=== PATIENT | male | born 1960 | race Caucasian/White ===

== ENCOUNTER 2017-01-10 07:35 | Emergency (ER) ==
--- NOTE | 2017-01-10 08:13 | PROVIDER DOCUMENTATION ---
HPI-Neurological Disorder <Noe Jennings - Last Filed: 01/10/17 11:24> - General Source: family Unable to obtain history due to:: urgency - History of Present Illness-Neuro Severity: reports: mild Onset/Duration: reports: 1 hour ago Timing: reports: resolved prior to arrival Context: reports: found unresponsive by family, low blood sugar Approximate time patient was last seen normal?: 06:00 Character of Altered Mental Status: reports: disoriented, confused, trouble concentrating, decreased responsiveness Any recent trauma/injury?: reports: none Character of Deficits: reports: altered sensation New weakness or altered sensation location:: reports: none Cognitive Baseline: alert, oriented x3 Gait Baseline: walks without assistance Associated Symptoms: reports: headache, confusion Similar Symptoms Previously?: Yes Recently seen or treated by another doctor?: No - Seizure First time to have a seizure?: No Witnessed seizure?: No Status Epilepticus: No Character of Seizure: denies: lost consciousness Post-ictal Symptoms: reports: none Seizure related injury: none <Cristian Cole I - Last Filed: 01/10/17 11:28> - General Chief Complaint: Low Blood Sugar Stated Complaint: unresponsive / low blood sugar Time Seen by Provider: 01/10/17 07:52 Allergies/Adverse Reactions: Patient Allergies Allergy/AdvReac Type Severity Reaction Status Date / Time No Known Allergies Allergy Verified 01/10/17 07:56 Home Medications: Home Medication List Medication Instructions Recorded Confirmed Last Taken Type Aspirin [Aspirin EC] 325 mg PO DAILY 11/22/12 01/10/17 01/10/17 07:00 History Docosahexanoic Acid/Epa [Fish Oil 1 each PO DAILY 11/22/12 01/10/17 01/10/17 07: 00 History Softgel] FOSINOpril [Monopril] 20 mg PO DAILY 11/22/12 01/10/17 01/10/17 07:00 History Insulin Glargine [Lantus] 40 unit SUBQ QAM 11/22/12 01/10/17 01/10/17 06:00 History Insulin Humalog 75/25 [Humalog Mix 100 unit SUBQ AC + HS 11/22/12 01/10/1701/10 07:00 History 75/25] Metformin [Glucophage] 1,000 mg PO WBREAKFAST 11/22/12 01/10/17 01/10/17 07:00 History Multivit-Min/FA/Lycopene/Lut 1 each PO DAILY 11/22/12 01/10/17 01/10/17 07:00 History [Centrum Silver Tablet] PRAVAstatin [Pravachol] 40 mg PO DAILY 11/22/12 01/10/17 01/10/17 07:00 History Vit A & D3 in Cod Liver Oil [Cod 1 each PO DAILY 11/22/12 01/10/17 01/10/17 07: 00 History Liver Oil Softgel] - History of Present Illness-Neuro Nature of Presenting Problem: Patient took his insulin this morning, but didn't eat. He got confused and EMS had to give him an amp of D50. He became more responsive. He arrived to the ED via EMS, and initially refused to be evaluated until his discussed with him the need for evaluation. He is presently alert and oriented, and is eating. He denies any complaints. ( Cristian Cole I) Review of Systems - Adult - REVIEW OF SYSTEMS - ADULT Constitutional: reports: see HPI Eyes: reports: no symptoms reported Ears, Nose, Mouth & Throat: reports: no symptoms reported Cardiovascular: reports: no symptoms reported Respiratory: reports: no symptoms reported Gastrointestinal: reports: no symptoms reported Genitourinary: reports: no symptoms reported Musculoskeletal: reports: no symptoms reported Integumentary: reports: no symptoms reported Neurological: reports: see HPI, headache/migraines, numbness, paresthesia Psychiatric: reports: no symptoms reported Endocrine: reports: see HPI Hematologic/Lymphatic: reports: no symptoms reported Allergic/Immunologic: reports: no symptoms reported All Other Systems: Reviewed and Negative <Cristian Cole I - Last Filed: 01/10/17 11:28> Past History - Adult - PAST MEDICAL HISTORY-ADULT Review of Records: reports: Old Records Reviewed, Nursing Assessment Review, Medications Reviewed, Social history reviewed & non-contributory. 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, Insulin Dependent Other Conditions: reports: denies history <Cristian Cole I - Last Filed: 01/10/17 11:28> Physical Exam- Neurological - Physical Exam-Neuro Initial Vital Signs Reviewed: Yes General Appearance: appears well, alert, no apparent distress Eye Exam: right eye: normal inspection HENMT: normocephalic/atraumatic, moist mucous membranes, normal ENT inspection Head Injury: no evidence of injury Neck: non-tender, full range of motion, supple Respiratory: chest non-tender, lungs clear, normal breath sounds Cardiovascular: normal peripheral pulses, regular rate, rhythm, no edema Abdominal Exam: normal bowel sounds, non tender, soft Lymphatic: no adenopathy, axilla node tender, cervical node tenderness Extremity: normal range of motion, non-tender, 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 Exam: normal hearing, normal speech, PERRL Coordination/Gait: normal finger to nose, normal gait Motor/Sensory: no motor deficit, no sensory deficit Neurologic: glassware 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 II-XII nml as tested, grossly normal, no motor/sensory deficits Integumentary: normal color, normal turgor, warm/dry Psych/Mental Status: normal mood/affect, normal thought content, normal thought process <Cristian Cole I - Last Filed: 01/10/17 11:28> Progress - REASSESSMENT Reassessment #1 Time Reassessed: 11:20 Status: improving Reassessment Comment: a/o x 3, feels better, eating - EKG 1 Time of EKG reading by physician:: 08:13 EKG Read and Signed by:: Cristian Cole EKG Interpretation (*Must complete 3 of following elements*): Normal Rate: 813 Rhythm: NSR Jackson: normal QRS: normal MS Interval: normal ST Wave: normal <Noe Jennings - Last Filed: 01/10/17 11:24> <Cristian Cole I - Last Filed: 01/10/17 11:28> - PLAN OF CARE/RESULTS Progress/Plan/Lab Results: Vital Signs Temp Pulse Resp BP Pulse Ox 01/10/17 09:19 17 136/77 100 01/10/17 07:43 97.5 F L 85 20 178/77 100 No Known Allergies Allergy (Verified 01/10/17 07:56) Aspirin [Aspirin EC] 325 mg PO DAILY 11/22/12 Docosahexanoic Acid/Epa [Fish Oil Softgel] 1 each PO DAILY 11/22/12 FOSINOpril [Monopril] 20 mg PO DAILY 11/22/12 Insulin Glargine [Lantus] 40 unit SUBQ QAM 11/22/12 Insulin Humalog 75/25 [Humalog Mix 75/25] 100 unit SUBQ AC + HS 11/22/12 Metformin [Glucophage] 1,000 mg PO WBREAKFAST 11/22/12 Multivit-Min/FA/Lycopene/Lut [Centrum Silver Tablet] 1 each PO DAILY 11/22/12 PRAVAstatin [Pravachol] 40 mg PO DAILY 11/22/12 Vit A & D3 in Cod Liver Oil [Cod Liver Oil Softgel] 1 each PO DAILY 11/22/12 Dietary Diet Diabetic Diet Start TueJan 10 0747 Laboratory 01/10/17 01/10/17 01/10/17 09:11 08:26 08:24 WBC RBC Hgb Hct MCV MCH MCHC RDW Std Deviation Plt Count MPV Immature Gran % (Auto) Neut % (Auto) Lymph % (Auto) [place] % (Auto) Eos % (Auto) Baso % (Auto) Immature Gran # (Auto) Neut # (Auto) Lymph # (Auto) [place] # (Auto) Eos # (Auto) Baso # (Auto) PT INR PTT (Actin FS) Specimen Type ARTERIAL Sample Site L RADIAL pH 7.43 pCO2 37 pO2 80 HCO3 25.2 Base Excess 0.5 Oxyhemoglobin 95.0 ABG O2 Sat (Calculated) 19.0 ABG O2 Saturation 98.1 ABG Carboxyhemoglobin 1.80 ABG Methemoglobin 1.5 Alex Test YES A-a O2 Difference 23.0 Total Hemoglobin 14.2 Lactate 1.40 Blood Gas Modality ROOM AIR FiO2 % 21.0 Sodium Potassium Chloride Carbon Dioxide Anion Gap BUN Creatinine Estimated GFR/1.73 m2 BUN/Creatinine Ratio Glucose POC Glucose 67 L Calculated Osmolality Calcium Total Bilirubin AST ALT Alkaline Phosphatase Creatine Kinase Troponin T < 0.010 Total Protein Albumin Globulin Albumin/Globulin Ratio Plasma/Serum Ethyl Alc 01/10/17 01/10/17 01/10/17 08:24 08:24 08:24 WBC 9.06 RBC 4.60 L Hgb 14.5 Hct 41.6 L MCV 90.4 MCH 31.5 H MCHC 34.9 RDW Std Deviation 13.3 Plt Count 366 MPV 8.9 Immature Gran % (Auto) 0.0 Neut % (Auto) 72.0 Lymph % (Auto) 12.6 L [place] % (Auto) 13.6 H Eos % (Auto) 1.5 Baso % (Auto) 0.3 Immature Gran # (Auto) 0.00 Neut # (Auto) 6.52 H Lymph # (Auto) 1.14 L [place] # (Auto) 1.23 H Eos # (Auto) 0.14 Baso # (Auto) 0.03 PT 10.3 INR 0.97 PTT (Actin FS) 27.1 Specimen Type Sample Site pH pCO2 pO2 HCO3 Base Excess Oxyhemoglobin ABG O2 Sat (Calculated) ABG O2 Saturation ABG Carboxyhemoglobin ABG Methemoglobin Alex Test A-a O2 Difference Total Hemoglobin Lactate Blood Gas Modality FiO2 % Sodium 139 Potassium 3.9 Chloride 100 Carbon Dioxide 25 Anion Gap 14 BUN 22 Creatinine 1.1 Estimated GFR/1.73 m2 > 60 BUN/Creatinine Ratio 20 Glucose 19 L* POC Glucose Calculated Osmolality 276 Calcium 9.9 Total Bilirubin 0.24 AST 22 ALT 16 Alkaline Phosphatase 55 Creatine Kinase 73 Troponin T Total Protein 7.4 Albumin 4.6 Globulin 2.8 Albumin/Globulin Ratio 1.6 Plasma/Serum Ethyl Alc 01/10/17 01/10/17 08:24 07:38 WBC RBC Hgb Hct MCV MCH MCHC RDW Std Deviation Plt Count MPV Immature Gran % (Auto) Neut % (Auto) Lymph % (Auto) [place] % (Auto) Eos % (Auto) Baso % (Auto) Immature Gran # (Auto) Neut # (Auto) Lymph # (Auto) [place] # (Auto) Eos # (Auto) Baso # (Auto) PT INR PTT (Actin FS) Specimen Type Sample Site pH pCO2 pO2 HCO3 Base Excess Oxyhemoglobin ABG O2 Sat (Calculated) ABG O2 Saturation ABG Carboxyhemoglobin ABG Methemoglobin Alex Test A-a O2 Difference Total Hemoglobin Lactate Blood Gas Modality FiO2 % Sodium Potassium Chloride Carbon Dioxide Anion Gap BUN Creatinine Estimated GFR/1.73 m2 BUN/Creatinine Ratio Glucose POC Glucose 56 L D Calculated Osmolality Calcium Total Bilirubin AST ALT Alkaline Phosphatase Creatine Kinase Troponin T Total Protein Albumin Globulin Albumin/Globulin Ratio Plasma/Serum Ethyl Alc Orders Category Date Time Status Cardiac Monitoring DIRECTED Care 01/10/17 07:52 Active Finger Stick Blood Sugar (ED) DIRECTED Care 01/10/17 07:52 Active Oxygen Therapy- ED Nursing DIRECTED Care 01/10/17 07:52 Active Saline Loc NOW Care 01/10/17 07:52 Active Diabetic Diet Diet 01/10/17 07:47 Active ABG [RESP] Routine Lab 01/10/17 08:26 Completed ALCOHOL BLOOD Stat Lab 01/10/17 08:24 Completed CBC WITH ELECTRONIC DIFF [HEME] Stat Lab 01/10/17 08:24 Completed CK PROFILE [SP CHEM] Stat Lab 01/10/17 08:24 Completed COMPREHENSIVE METABOLIC PANEL [CHEM] Stat Lab 01/10/17 08:24 Completed PROTIME WITH INR [COAG] Stat Lab 01/10/17 08:24 Completed PTT [COAG] Stat Lab 01/10/17 08:24 Completed TROPONIN T Stat Lab 01/10/17 08:24 Completed Pulse Oximetry Stat Oth 01/10/17 07:52 Active EKG [EKG] Stat Ther 01/10/17 07:52 Draft pt will be d/c home f/u with pcp, pt was clinically and neurologically stable. (Noe Jennings) 1129: Case discussed with family. Patient alert and oriented. Wants to go home. Labs addresed. (Cristian Cole I) Departure - Departure Time of Disposition Order: 11:24 Certified Medical Emergency: Emergent <Noe Jennings - Last Filed: 01/10/17 11:24> - Departure Time of Disposition Order: 11:27 Certified Medical Emergency: Emergent <Cristian Cole I - Last Filed: 01/10/17 11:28> - Departure DIAGNOSIS: Hypoglycemia Disposition: HOME 01 Condition: Stable Additional Instructions: eat when you take your insulin ED Follow Up Instructions: You have been treated by a care provider in the Emergency Department. These instructions are being provided to you so you can have an understanding of how to care for yourself upon discharge. Upon discharge from the Emergency Department, you are responsible for making arrangements for follow-up care by a physician of your choice. Take all prescribed medications as directed. Return to the Emergency Department immediately for any new or worsening symptoms. You may call the Physician Referral phone number at [phone] to obtain a list of Physicians who are taking new patients. Referrals: Isabelle Calderon MD [Primary Care Provider] - Call for Appoint. 1-2days Instructions: Hypoglycemia Attestation - Scribe Verification/Attestation Scribe:: Noe Jennings Acting as Scribe for:: Cristian Cole Scribe documention review:: This chart was documented by a scribe and accurately reflects the service the provider performed and the decisions made by the provider. <Noe Jennings - Last Filed: 01/10/17 11:24> Physician Attestation - Physician Attestation I, the provider, attest to the following statement:: Cristian Cole Physician documentation Attestation:: This documentation recorded by the scribe accurately reflects the service I personally performed and the decisions made by me. <Noe Jennings - Last Filed: 01/10/17 11:24> - Physician Attestation I, the provider, attest to the following statement:: Cristian Cole Physician documentation Attestation:: This documentation recorded by the scribe accurately reflects the service I personally performed and the decisions made by me. <Cristian Cole I - Last Filed: 01/10/17 11:28>
--- NOTE | 2017-01-10 08:23 | EKG Report ---
Test Performed on : 01/10/2017 08:13:14 AM Test Reason : AMS Blood Pressure : / mmHG Vent. Rate : 080 BPM Atrial Rate : 080 BPM P-R Int : 146 ms QRS Dur : 078 ms QT Int : 368 ms P-R-T Axes : 049 076 060 degrees QTc Int : 424 ms Normal sinus rhythm. Normal ECG When compared with ECG of 22-NOV-2012 09:32, No significant change was found Unconfirmed Result
[2017-01-10 08:34] LABS: ALLEN TEST YES; BE 0.5 mmoll (-3.0-3.0); BLOOD TYPE ARTERIAL; DRAW SITE L RADIAL; METHB 1.5 % (0.0-1.5); PCO2(98.6) 37 mmHg (35-45); PO2(98.6) 80 mmHg (60-100); SAMPLE BLOOD; SAO2 98.1 % (95.0-100.0); THB 14.2 g/dL (11.5-17.4); pH(98.6) 7.43 (7.35-7.45)
[2017-01-10 08:34] LABS: MANUAL DIFF NEEDED? NO
[2017-01-10 08:37] LABS: MODALITY ROOM AIR
[2017-01-10 08:38] LABS: BASO% 0.3 % (0.0-0.8); EOS# 0.14 X1000 (0.0-0.7); EOS% 1.5 % (0.0-10.0); HEMATOCRIT 41.6 % (42.0-52.0); HEMOGLOBIN 14.5 g/dL (14.0-18.0); LYMPH# 1.14 X1000 (1.2-3.4); LYMPH% 12.6 % (20.5-51.1); MCH 31.5 PG (27-31); MCHC 34.9 g/dL (33-37); MCV 90.4 FL (81-99); MONO# 1.23 X1000 (0.11-0.59); MONO% 13.6 % (1.7-9.3); MPV 8.9 FL (7.4-10.4); PLT 366 X1000 (130-400)
[2017-01-10 08:52] LABS: INR 0.97; PROTIME 10.3 Seconds (9.2-11.7); PTT 27.1 Seconds (22.0-36.0)
[2017-01-10 08:53] LABS: AGAP 14; ALBUMIN 4.6 g/dL (3.5-5.0); ALKALINE PHOSPHATASE 55 U/L (32-122); BUN 22 mg/dL (8-22); CALCIUM 9.9 mg/dL (8.8-10.2); CHLORIDE 100 mmol/L (98-107); CK PROFILE 73 U/L (24-204); COSMO 276; GOT 22 U/L (10-34); GPT 16 U/L (10-44); POTASSIUM 3.9 mmol/L (3.5-5.1); SODIUM 139 mmol/L (136-145); TCO2 25 mmol/L (25-35); TOTAL BILIRUBIN 0.24 mg/dL (0.20-1.00); TOTAL PROTEIN 7.4 g/dL (6.3-8.3)
[2017-01-10 12:08] VITALS: BP 174/88
== END 2017-01-10 12:07 | disposition home or self-care (01) ==
LOC: EDBD → ED 07:35
DX: E11.649 Type 2 diabetes mellitus with hypoglycemia without coma (principal); R41.0 Disorientation, unspecified; R51 Headache; R20.0 Anesthesia of skin; R20.9 Unspecified disturbances of skin sensation; E78.5 Hyperlipidemia, unspecified; Z79.899 Other long term (current) drug therapy; Z79.82 Long term (current) use of aspirin; Z79.4 Long term (current) use of insulin
CPT/HCPCS: 80053; 82550; 82805; 82948; 84484; 85025; 85610; 85730; 93005; G0480; 80320

== ENCOUNTER 2017-01-13 10:49 | Emergency (ER) ==
--- NOTE | 2017-01-13 10:55 | PROVIDER DOCUMENTATION ---
HPI-General Adult - General Source: patient - History of Present Illness -Gen Adult Nature of Presenting Problems: patient is a 56 y/o M that presents to the ER with low blood sugar. patient took his insulin this am and ate a smart one breakfast meal. He began to become altered, blood sugar was checked and it was in the 20s( 23mg/dl). EMS arrived on scene and patient started to drink sugar water and was given oral glucose. Patient's sugar got up to 26 mg/dl and patient became more alert and aware. ON arrival to ER, he is complete back to his normal and has no complaints. He had similar symptoms and was seen in the ER recently for it. Location of Pain/Injury: reports: none Pain Radiation: reports: no radiation Quality of Pain: reports: none Severity: reports: moderate Onset/Duration: reports: abrupt, this morning Timing: reports: improving Context/Activities at Onset: reports: none Modifying Factors: improves with: nothing Associated Symptoms: denies: back/neck pain, chest pain, diaphoresis, fever/ chills, genitourinary problems, nausea, shortness of breath, vomiting Similar Symptoms Previously?: Yes Recently seen or treated by another doctor?: Yes - Diabetes Related Context Context: reports: low blood sugar, change in mental status <Noe Jennings - Last Filed: 01/13/17 12:19> <Deep Mauricio - Last Filed: 01/13/17 15:01> - General Chief Complaint: Low Blood Sugar Stated Complaint: hypoglycemia Time Seen by Provider: 01/13/17 10:51 Allergies/Adverse Reactions: Patient Allergies Allergy/AdvReac Type Severity Reaction Status Date / Time No Known Allergies Allergy Verified 01/13/17 11:21 Home Medications: Home Medication List Medication Instructions Recorded Confirmed Last Taken Type Aspirin [Aspirin EC] 325 mg PO DAILY 11/22/12 01/13/17 01/13/17 07:30 History Docosahexanoic Acid/Epa [Fish Oil 1 each PO DAILY 11/22/12 01/13/17 01/13/17 07: 30 History Softgel] FOSINOpril [Monopril] 40 mg PO DAILY 11/22/12 01/13/17 01/13/17 07:30 History Insulin Glargine [Lantus] 44 unit SUBQ QAM 0101/13/17 01/13/17 07:30 History Metformin [Glucophage] 1,000 mg PO WBREAKFAST 11/22/12 01/13/17 01/13/17 07:30 History Multivit-Min/FA/Lycopene/Lut 1 each PO DAILY 11/22/12 01/13/17 01/13/17 07:30 History [Centrum Silver Tablet] PRAVAstatin [Pravachol] 40 mg PO DAILY 11/22/12 01/13/17 01/13/17 07:30 History Vit A & D3 in Cod Liver Oil [Cod 1 each PO DAILY 11/22/12 01/13/17 01/13/17 07: 30 History Liver Oil Softgel] Ginkgo Biloba 60 mg PO DAILY 01/13/17 01/13/17 01/13/17 07:30 History Insulin Lispro [Humalog] See Protocol SQ PRN PRN 01/13/17 01/13/17 01/12/17 10: 00 History Pantoprazole Sodium [Protonix] 40 mg PO DAILY 01/13/17 01/13/17 01/13/17 07:30 History Elbert Jelly/Bee Pollen/P.ginsg 1 each PO DAILY 01/13/17 01/13/17 01/13/17 07:30 History [Danish Ginseng Complex Cap] Vitamin E 1,000 unit PO DAILY 01/13/17 01/13/17 01/13/17 07:30 History Review of Systems - Adult - REVIEW OF SYSTEMS - ADULT Constitutional: denies: chills, fever, fatique Eyes: reports: no symptoms reported Ears, Nose, Mouth & Throat: denies: ear discharge, ear pain, sinus problem, throat pain, throat swelling Cardiovascular: denies: chest pain, palpitations, syncope Respiratory: denies: cough, shortness of breath, wheezing Gastrointestinal: reports: no symptoms reported Genitourinary: reports: no symptoms reported Musculoskeletal: denies: back pain, joint pain, neck pain Integumentary: reports: no symptoms reported Neurological: reports: see HPI Psychiatric: reports: no symptoms reported Endocrine: reports: no symptoms reported Hematologic/Lymphatic: reports: no symptoms reported Allergic/Immunologic: reports: no symptoms reported All Other Systems: Reviewed and Negative <Noe Jennings - Last Filed: 01/13/17 12:19> Past History - Adult - PAST MEDICAL HISTORY-ADULT Review of Records: reports: Old Records Reviewed, Nursing Assessment Review, Medications Reviewed Cardiovascular: reports: HTN Neurological: reports: CVA Endocrine/Immune: reports: Diabetes 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) - PRIOR SURGERIES/PROCEDURES Surgical/Procedure History: reports: reviewed, not pertinent - IMMUNIZATION STATUS Childhood Immunizations: See Nurse Assessment Flu Vaccine: See Nurse Assessment - FAMILY HISTORY Family History: reviewed, not pertinent - SOCIAL HISTORY Smoking: quit greater than 1 year, cigarettes Alcohol Use Frequency: occasionally Living Situation: family <Noe Jennings - Last Filed: 01/13/17 12:19> Physical Exam-General - PHYSICAL EXAM-ADULT Initial Vital Signs Reviewed: Yes - CONSTITUTIONAL General Appearance: alert, no apparent distress - EYES Eyes: PERRL/EOMI, pink conjunctivae - HEAD, EARS, NOSE, MOUTH & THROAT HENMT: normocephalic/atraumatic, moist mucous membranes, normal ENT inspection - NECK Neck: non-tender, full range of motion, normal inspection - RESPIRATORY Respiratory: lungs clear, normal breath sounds, no respiratory distress, no accessory muscle use - CARDIOVASCULAR Cardiovascular: regular rate, rhythm, no edema, no JVD - GASTROINTESTINAL (ABDOMEN) Abdominal Exam: normal bowel sounds, non tender, soft - MUSCULOSKELETAL Extremity: normal range of motion, normal inspection, no pedal edema - SKIN Integumentary: normal color, normal turgor, warm/dry - NEUROLOGIC Neurologic: block and case maker II-XII nml as tested, no motor/sensory deficits - PSYCHIATRIC Psych/Mental Status: normal mood/affect, normal thought content, normal thought process, oriented x 3 <Noe Jennings - Last Filed: 01/13/17 12:19> Progress - PLAN OF CARE/RESULTS Progress/Plan/Lab Results: plan of care-labs, ekg, cxr - XRAY 1 XRAY Study: Chest Impression: Normal XRAY Interpretation: negative <Noe Jennings - Last Filed: 01/13/17 12:19> - PLAN OF CARE/RESULTS Progress/Plan/Lab Results: Laboratory Tests 01/13/17 01/13/17 01/13/17 11:02 11:02 11:02 WBC 12.15 H RBC 4.73 Hgb 14.8 Hct 43.2 MCV 91.3 MCH 31.3 H MCHC 34.3 RDW Std Deviation 13.3 Plt Count 382 MPV 8.9 Immature Gran % (Auto) 0.2 Neut % (Auto) 82.4 H Lymph % (Auto) 8.9 L [place] % (Auto) 7.7 Eos % (Auto) 0.6 Baso % (Auto) 0.2 Immature Gran # (Auto) 0.03 Neut # (Auto) 10.01 H Lymph # (Auto) 1.08 L [place] # (Auto) 0.93 H Eos # (Auto) 0.07 Baso # (Auto) 0.03 PT INR PTT (Actin FS) Sodium 137 Potassium 5.6 H Chloride 99 Carbon Dioxide 25 Anion Gap 13 BUN 19 Creatinine 1.1 Estimated GFR/1.73 m2 > 60 BUN/Creatinine Ratio 17 Glucose 83 Calculated Osmolality 275 Calcium 10.2 Total Bilirubin 0.18 L AST 22 ALT 18 Alkaline Phosphatase 67 Creatine Kinase 65 Troponin T Total Protein 7.3 Albumin 4.6 Globulin 2.7 Albumin/Globulin Ratio 1.7 Plasma Lactate Urine Source Urine Color Urine Turbidity Urine pH Ur Specific [place] Urine Protein Ur Glucose (Stick) Ur Ketones (Stick) Urine Blood Urine Nitrite Urine Bilirubin Urobilinogen Dipstick Urine Leukocytes Urine WBC (Auto) Urine RBC (Auto) U Epithel Cells (Auto) Urine Bacteria (Auto) Plasma/Serum Ethyl Alc 01/13/17 01/13/17 01/13/17 11:02 11:02 11:02 WBC RBC Hgb Hct MCV MCH MCHC RDW Std Deviation Plt Count MPV Immature Gran % (Auto) Neut % (Auto) Lymph % (Auto) [place] % (Auto) Eos % (Auto) Baso % (Auto) Immature Gran # (Auto) Neut # (Auto) Lymph # (Auto) [place] # (Auto) Eos # (Auto) Baso # (Auto) PT 9.6 INR 0.91 PTT (Actin FS) 26.7 Sodium Potassium Chloride Carbon Dioxide Anion Gap BUN Creatinine Estimated GFR/1.73 m2 BUN/Creatinine Ratio Glucose Calculated Osmolality Calcium Total Bilirubin AST ALT Alkaline Phosphatase Creatine Kinase Troponin T < 0.010 Total Protein Albumin Globulin Albumin/Globulin Ratio Plasma Lactate 2.7 H Urine Source Urine Color Urine Turbidity Urine pH Ur Specific [place] Urine Protein Ur Glucose (Stick) Ur Ketones (Stick) Urine Blood Urine Nitrite Urine Bilirubin Urobilinogen Dipstick Urine Leukocytes Urine WBC (Auto) Urine RBC (Auto) U Epithel Cells (Auto) Urine Bacteria (Auto) Plasma/Serum Ethyl Alc 01/13/17 01/13/17 14:18 14:23 WBC RBC Hgb Hct MCV MCH MCHC RDW Std Deviation Plt Count MPV Immature Gran % (Auto) Neut % (Auto) Lymph % (Auto) [place] % (Auto) Eos % (Auto) Baso % (Auto) Immature Gran # (Auto) Neut # (Auto) Lymph # (Auto) [place] # (Auto) Eos # (Auto) Baso # (Auto) PT INR PTT (Actin FS) Sodium Potassium Chloride Carbon Dioxide Anion Gap BUN Creatinine Estimated GFR/1.73 m2 BUN/Creatinine Ratio Glucose Calculated Osmolality Calcium Total Bilirubin AST ALT Alkaline Phosphatase Creatine Kinase Troponin T Total Protein Albumin Globulin Albumin/Globulin Ratio Plasma Lactate 1.2 Urine Source CLEAN CATCH Urine Color STRAW Urine Turbidity CLEAR Urine pH 5.5 Ur Specific [place] 1.011 Urine Protein TRACE A Ur Glucose (Stick) >1000 A Ur Ketones (Stick) 10 A Urine Blood NEGATIVE Urine Nitrite NEGATIVE Urine Bilirubin NEGATIVE Urobilinogen Dipstick NORMAL Urine Leukocytes NEGATIVE Urine WBC (Auto) <10 Urine RBC (Auto) <10 U Epithel Cells (Auto) <10 Urine Bacteria (Auto) NEGATIVE Plasma/Serum Ethyl Alc Orders Category Date Time Status Cardiac Monitoring DIRECTED Care 01/13/17 10:51 Active Finger Stick Blood Sugar (ED) DIRECTED Care 01/13/17 10:51 Active Oxygen Therapy- ED Nursing DIRECTED Care 01/13/17 10:51 Active Saline Loc NOW Care 01/13/17 10:51 Active CHEST-PORTABLE [RAD] Stat Exams 01/13/17 10:52 Completed ALCOHOL BLOOD Stat Lab 01/13/17 11:02 Completed CBC WITH ELECTRONIC DIFF [HEME] Stat Lab 01/13/17 11:02 Completed CK PROFILE [SP CHEM] Stat Lab 01/13/17 11:02 Completed COMPREHENSIVE METABOLIC PANEL [CHEM] Stat Lab 01/13/17 11:02 Completed LACTATE, PLASMA [CHEM] Stat Lab 01/13/17 11:02 Completed LACTATE, PLASMA [CHEM] Stat Lab 01/13/17 14:23 Completed PROTIME WITH INR [COAG] Stat Lab 01/13/17 11:02 Completed PTT [COAG] Stat Lab 01/13/17 11:02 Completed TROPONIN T Stat Lab 01/13/17 11:02 Completed URINALYSIS W/POSS RFLX CULT [URINALYSIS] Stat Lab 01/13/17 14:18 Completed 0.9% Sodium Chloride Inj [Ns] 1,000 ml Med 01/13/17 11:56 Discontinued IV 999 mls/hr Dextrose 50% Syringe [D50w Syringe] Med 01/13/17 11:08 Discontinued 50 ml .ROUTE .STK-MED ONE Dextrose 50% Syringe [D50w Syringe] Med 01/13/17 11:14 Discontinued 50 ml IV NOW ONE Dextrose 50% Water Inj. [D50w] 500 ml Med 01/13/17 11:15 Discontinued IV As Directed Sodium Polystyrene [Kayexalate] Med 01/13/17 13:43 Discontinued 30 gm PO NOW ONE Pulse Oximetry Stat Oth 01/13/17 10:51 Active EKG [EKG] Stat Ther 01/13/17 10:51 Draft Vital Signs Temp Pulse Resp BP Pulse Ox 01/13/17 12:50 92 H 16 119/50 99 01/13/17 10:52 97.7 F 92 H 16 202/87 100 No Known Allergies Allergy (Verified 01/13/17 11:21) Aspirin [Aspirin EC] 325 mg PO DAILY 11/22/12 Docosahexanoic Acid/Epa [Fish Oil Softgel] 1 each PO DAILY 11/22/12 FOSINOpril [Monopril] 40 mg PO DAILY 11/22/12 Insulin Glargine [Lantus] 44 unit SUBQ QAM 11/22/12 Metformin [Glucophage] 1,000 mg PO WBREAKFAST 11/22/12 Multivit-Min/FA/Lycopene/Lut [Centrum Silver Tablet] 1 each PO DAILY 11/22/12 PRAVAstatin [Pravachol] 40 mg PO DAILY 11/22/12 Vit A & D3 in Cod Liver Oil [Cod Liver Oil Softgel] 1 each PO DAILY 11/22/12 Ginkgo Biloba 60 mg PO DAILY 01/13/17 Insulin Lispro [Humalog] See Protocol SQ PRN PRN 01/13/17 Pantoprazole Sodium [Protonix] 40 mg PO DAILY 01/13/17 Elbert Jelly/Bee Pollen/P.ginsg [Danish Ginseng Complex Cap] 1 each PO DAILY 12/31 Vitamin E 1,000 unit PO DAILY 01/13/17 I&O 01/12/17 01/13/17 01/14/17 07:59 07:59 07:59 Output Total 10 Balance -10 Laboratory 01/13/17 01/13/17 01/13/17 14:23 14:18 11:02 WBC RBC Hgb Hct MCV MCH MCHC RDW Std Deviation Plt Count MPV Immature Gran % (Auto) Neut % (Auto) Lymph % (Auto) [place] % (Auto) Eos % (Auto) Baso % (Auto) Immature Gran # (Auto) Neut # (Auto) Lymph # (Auto) [place] # (Auto) Eos # (Auto) Baso # (Auto) PT INR PTT (Actin FS) Sodium Potassium Chloride Carbon Dioxide Anion Gap BUN Creatinine Estimated GFR/1.73 m2 BUN/Creatinine Ratio Glucose Calculated Osmolality Calcium Total Bilirubin AST ALT Alkaline Phosphatase Creatine Kinase Troponin T < 0.010 Total Protein Albumin Globulin Albumin/Globulin Ratio Plasma Lactate 1.2 Urine Source CLEAN CATCH Urine Color STRAW Urine Turbidity CLEAR Urine pH 5.5 Ur Specific [place] 1.011 Urine Protein TRACE A Ur Glucose (Stick) >1000 A Ur Ketones (Stick) 10 A Urine Blood NEGATIVE Urine Nitrite NEGATIVE Urine Bilirubin NEGATIVE Urobilinogen Dipstick NORMAL Urine Leukocytes NEGATIVE Urine WBC (Auto) <10 Urine RBC (Auto) <10 U Epithel Cells (Auto) <10 Urine Bacteria (Auto) NEGATIVE Plasma/Serum Ethyl Alc 01/13/17 01/13/17 01/13/17 11:02 11:02 11:02 WBC RBC Hgb Hct MCV MCH MCHC RDW Std Deviation Plt Count MPV Immature Gran % (Auto) Neut % (Auto) Lymph % (Auto) [place] % (Auto) Eos % (Auto) Baso % (Auto) Immature Gran # (Auto) Neut # (Auto) Lymph # (Auto) [place] # (Auto) Eos # (Auto) Baso # (Auto) PT 9.6 INR 0.91 PTT (Actin FS) 26.7 Sodium 137 Potassium 5.6 H Chloride 99 Carbon Dioxide 25 Anion Gap 13 BUN 19 Creatinine 1.1 Estimated GFR/1.73 m2 > 60 BUN/Creatinine Ratio 17 Glucose 83 Calculated Osmolality 275 Calcium 10.2 Total Bilirubin 0.18 L AST 22 ALT 18 Alkaline Phosphatase 67 Creatine Kinase 65 Troponin T Total Protein 7.3 Albumin 4.6 Globulin 2.7 Albumin/Globulin Ratio 1.7 Plasma Lactate 2.7 H Urine Source Urine Color Urine Turbidity Urine pH Ur Specific [place] Urine Protein Ur Glucose (Stick) Ur Ketones (Stick) Urine Blood Urine Nitrite Urine Bilirubin Urobilinogen Dipstick Urine Leukocytes Urine WBC (Auto) Urine RBC (Auto) U Epithel Cells (Auto) Urine Bacteria (Auto) Plasma/Serum Ethyl Alc 01/13/17 01/13/17 11:02 11:02 WBC 12.15 H RBC 4.73 Hgb 14.8 Hct 43.2 MCV 91.3 MCH 31.3 H MCHC 34.3 RDW Std Deviation 13.3 Plt Count 382 MPV 8.9 Immature Gran % (Auto) 0.2 Neut % (Auto) 82.4 H Lymph % (Auto) 8.9 L [place] % (Auto) 7.7 Eos % (Auto) 0.6 Baso % (Auto) 0.2 Immature Gran # (Auto) 0.03 Neut # (Auto) 10.01 H Lymph # (Auto) 1.08 L [place] # (Auto) 0.93 H Eos # (Auto) 0.07 Baso # (Auto) 0.03 PT INR PTT (Actin FS) Sodium Potassium Chloride Carbon Dioxide Anion Gap BUN Creatinine Estimated GFR/1.73 m2 BUN/Creatinine Ratio Glucose Calculated Osmolality Calcium Total Bilirubin AST ALT Alkaline Phosphatase Creatine Kinase Troponin T Total Protein Albumin Globulin Albumin/Globulin Ratio Plasma Lactate Urine Source Urine Color Urine Turbidity Urine pH Ur Specific [place] Urine Protein Ur Glucose (Stick) Ur Ketones (Stick) Urine Blood Urine Nitrite Urine Bilirubin Urobilinogen Dipstick Urine Leukocytes Urine WBC (Auto) Urine RBC (Auto) U Epithel Cells (Auto) Urine Bacteria (Auto) Plasma/Serum Ethyl Alc - EKG 1 EKG Interpretation (*Must complete 3 of following elements*): Normal [place]: normal QRS: normal [place] Interval: normal ST Wave: normal <Deep Mauricio - Last Filed: 01/13/17 15:01> Departure <Noe Jennings - Last Filed: 01/13/17 12:19> - Departure Time of Disposition Order: 14:57 Certified Medical Emergency: Emergent - Critical Care Note Comments: A 56 y/o M who presented with low BS after he took insulin and did not had adequate meal, initial labs lactate and potassium was slightly elevated no source of acute infection noted WBC slightly elevated most probaby due to ongoing sinus infection, given dextrose and BS came up, pt imorved and repeat lactate was normal, needs close follow up for potassium rcheck in 1 day with PCP discussed in detail with pt and red flags, Insulin sliding scale and frequent BS monitoring at home and see PCP to adjsut insulin dosing <Deep Mauricio - Last Filed: 01/13/17 15:01> - Departure DIAGNOSIS: Hypoglycemia associated with diabetes, Hyperkalemia Leukocytosis, unspecified Qualifiers: Leukocytosis type: unspecified Qualified Code(s): D72.829 - Elevated white blood cell count, unspecified Disposition: HOME 01 Condition: Good Attestation - Scribe Verification/Attestation Scribe:: Noe Jennings Acting as Scribe for:: Deep Mauricio Scribe documention review:: This chart was documented by a scribe and accurately reflects the service the provider performed and the decisions made by the provider. <Noe Jennings - Last Filed: 01/13/17 12:19> Physician Attestation - Physician Attestation I, the provider, attest to the following statement:: Deep Mauricio Physician documentation Attestation:: This documentation recorded by the scribe accurately reflects the service I personally performed and the decisions made by me. <Noe Jennings - Last Filed: 01/13/17 12:19>
[2017-01-13 11:08] LABS: MANUAL DIFF NEEDED? NO
[2017-01-13] MEDS ORDERED: D50W SYRINGE ONE (11:08)
[2017-01-13 11:12] LABS: BASO% 0.2 % (0.0-0.8); EOS# 0.07 X1000 (0.0-0.7); EOS% 0.6 % (0.0-10.0); HEMATOCRIT 43.2 % (42.0-52.0); HEMOGLOBIN 14.8 g/dL (14.0-18.0); IMM GRAN# 0.03 X1000 (0.0-0.04); IMM GRAN% 0.2 % (0.0-0.5); LYMPH# 1.08 X1000 (1.2-3.4); LYMPH% 8.9 % (20.5-51.1); MCH 31.3 PG (27-31); MCHC 34.3 g/dL (33-37); MCV 91.3 FL (81-99); MONO# 0.93 X1000 (0.11-0.59); MONO% 7.7 % (1.7-9.3); MPV 8.9 FL (7.4-10.4); NEUT% 82.4 % (42.2-75.2); PLT 382 X1000 (130-400); RBC 4.73 XMIL (4.7-6.1)
[2017-01-13] MEDS ORDERED: D50W SYRINGE IV ONE (11:14)
[2017-01-13] MEDS ORDERED: D50W 500 ML IV SCH (11:15)
[2017-01-13 11:25] LABS: INR 0.91; PROTIME 9.6 Seconds (9.2-11.7); PTT 26.7 Seconds (22.0-36.0)
--- NOTE | 2017-01-13 11:32 | Diag Imaging Result Document ---
PROCEDURE NAME: CHEST-PORTABLE - 01/13/2017 PORTABLE CHEST: COMPARISON: 11/22/2012. FINDINGS: The lungs are well expanded. The heart is not enlarged. The vessels are not distended. No pneumonia. No pleural effusions identified. Deformity to several lower left ribs from old healed injuries. IMPRESSION: Negative chest.
[2017-01-13 11:36] LABS: AGAP 13; ALBUMIN 4.6 g/dL (3.5-5.0); ALKALINE PHOSPHATASE 67 U/L (32-122); BUN 19 mg/dL (8-22); CALCIUM 10.2 mg/dL (8.8-10.2); CHLORIDE 99 mmol/L (98-107); CK PROFILE 65 U/L (24-204); COSMO 275; GOT 22 U/L (10-34); GPT 18 U/L (10-44); POTASSIUM 5.6 mmol/L (3.5-5.1); SODIUM 137 mmol/L (136-145); TCO2 25 mmol/L (25-35); TOTAL BILIRUBIN 0.18 mg/dL (0.20-1.00); TOTAL PROTEIN 7.3 g/dL (6.3-8.3)
[2017-01-13] MEDS ORDERED: NS 1,000 ML IV ONE (11:56)
--- NOTE | 2017-01-13 11:57 | EKG Report ---
Test Performed on : 01/13/2017 11:21:28 AM Test Reason : AMS Blood Pressure : / mmHG Vent. Rate : 090 BPM Atrial Rate : 090 BPM P-R Int : 148 ms QRS Dur : 078 ms QT Int : 346 ms P-R-T Axes : 056 086 058 degrees QTc Int : 423 ms Normal sinus rhythm. Normal ECG When compared with ECG of 10-JAN-2017 08:13, No significant change was found Unconfirmed Result
[2017-01-13] MEDS ORDERED: KAYEXALATE PO ONE (13:43)
[2017-01-13 14:30] LABS: URINE CULTURE NEEDED? NO; URINE MICRO REVIEW NEEDED? NO; URINE SOURCE CLEAN CATCH
[2017-01-13 14:37] LABS: BILIRUBIN URINE NEGATIVE (NEGATIVE); BLOOD URINE NEGATIVE (NEGATIVE); COLOR STRAW; GLUCOSE URINE >1000 mg/dL (NEGATIVE); LEUKOCYTES URINE NEGATIVE (NEGATIVE); NITRITE URINE NEGATIVE (NEGATIVE); PH URINE 5.5; PROTEIN URINE TRACE mg/dL (NEGATIVE); SP GRAVITY URINE 1.011; TURBIDITY URINE CLEAR (CLEAR); UROBILINOGEN URINE NORMAL (NORMAL)
[2017-01-13 14:39] LABS: UR EPITHELIAL CELLS <10 /HPF (<10); URINE BACTERIA NEGATIVE /HPF; URINE RBC <10 /HPF (<10); URINE WBC <10 /HPF (<10)
[2017-01-13 15:48] VITALS: BP 186/95
== END 2017-01-13 15:52 | disposition home or self-care (01) ==
LOC: EDBD → ED 10:49
DX: E11.649 Type 2 diabetes mellitus with hypoglycemia without coma (principal); E87.5 Hyperkalemia; D72.829 Elevated white blood cell count, unspecified; I10 Essential (primary) hypertension; Z86.73 Personal history of transient ischemic attack (TIA), and cerebral infarction without residual deficits; H54.41 Blindness, right eye, normal vision left eye; Z87.891 Personal history of nicotine dependence; Z79.899 Other long term (current) drug therapy; Z79.4 Long term (current) use of insulin; Z79.82 Long term (current) use of aspirin
CPT/HCPCS: 71010; 80053; 81001; 82550; 82948; 83605; 84484; 85025; 85610; 85730; 93005; G0480; J7030; 80320